=== PATIENT | female | born 1970 | race Caucasian/White ===

== ENCOUNTER 2020-05-10 11:53 | Inpatient (IN) | payer OTHER, SELFPAY ==
[~2020-05-10] VITALS: Ht 170.2 cm; Wt 117.9 kg
[2020-05-10 11:59] VITALS: BP_SYST 159
--- NOTE | 2020-05-10 12:00 | NUR ---
Patient to ER bed 7 to gown for evaluation. Side rails up. Report given to Bren RANGEL.
--- NOTE | 2020-05-10 12:10 | NUR ---
Patient presented to ER C/O flank pain. Patient BIB BLS from home. PT A&Ox4, speaking in full sentences, skin pink and warm, nausea, emesis prior to ER visit, denies diarrhea, pain 10/10. Patient states she has sudden sharp pain to right lower back since this morning. Patient reports a Hx of kidney stones "but this does not feel the same." PT states she took tylenol this morning but "threw it up" before calling 911.
--- NOTE | 2020-05-10 12:14 | NUR ---
ER Dr. LEONARDO at bedside examining patient.
[2020-05-10 12:30] LABS: BILIRUBIN,URINE NEGATIVE (NEGATIVE); COLOR,URINE YELLOW (YELLOW); GLUCOSE,URINE NEGATIVE (NEGATIVE); KETONES,URINE NEGATIVE (NEGATIVE); LEUKOCYTE ESTERASE ,URINE NEGATIVE (NEGATIVE); NITRITE, URINE NEGATIVE (NEGATIVE); PH,URINE 8.5 (5.0-8.0); PROTEIN URINE NEGATIVE (NEGATIVE); UROBILINOGEN,URINE 0.2 (0.2-1.0)
[2020-05-10] MEDS ORDERED: KETOROLAC TROMETHAMINE 30 MG VIAL IVP ONE (12:30)
[2020-05-10] MEDS ORDERED: NACL 0.9% 1,000 ML IV ONE (12:30)
[2020-05-10] MEDS ORDERED: ONDANSETRON HCL 4 MG/2 ML VIAL IVP ONE (12:30)
[2020-05-10 12:32] LABS: BLOOD, URINE TRACE (NEGATIVE); CLARITY/URINE HAZY (CLEAR)
[2020-05-10 12:40] LABS: BACTERIA,URINE MODERATE /HPF (None Seen); RBC,URINE 0-3 /HPF (0-3); WBC,URINE 0-3 /HPF (0-3); YEAST,URINE Moderate /HPF (None Seen)
[2020-05-10 12:44] LABS: BASOPHILS # (AUTO) 0.1 K/uL (0.0-0.2); BASOPHILS % (AUTO) 0.8 % (0.0-2.0); EOSINOPHILS # (AUTO) 0.1 K/uL (0.0-0.4); EOSINOPHILS % (AUTO) 1.4 % (0.0-4.0); HEMATOCRIT 34.8 % (36-48); HEMOGLOBIN 11.2 g/dL (12.0-16.0); LYMPHOCYTES % (AUTO) 10.6 % (20.5-51.5); MEAN CORPUSCULAR HEMOGLOBIN 27 pg (27-31); MEAN CORPUSCULAR HGB CONC 32 % (32-36); MEAN CORPUSCULAR VOLUME 83 fL (79.0-98.0); MONOCYTES # (AUTO) 0.5 K/uL (0.0-1.0); MONOCYTES % (AUTO) 5.3 % (1.7-9.3); NEUTROPHILS # (AUTO) 8.1 K/uL (1.8-7.7); NEUTROPHILS % (AUTO) 81.9 % (40.0-70.0); PLATELET COUNT (AUTO) 238 K/uL (130-430); RED BLOOD CELL COUNT(AUTO) 4.21 MIL/uL (4.2-6.2); RED CELL DISTRIBUTION WIDTH 19.2 % (9.0-15.0); WHITE BLOOD COUNT (AUTO) 9.9 K/uL (4.8-10.8)
--- NOTE | 2020-05-10 13:00 | NUR ---
Patient transported to radiology via wheelchair, accompanied by ROBERTO CORONA.
[2020-05-10 13:10] LABS: CALCIUM 8.5 mg/dL (8.4-11.0); CREATININE 0.77 mg/dL (0.55-1.30); POTASSIUM 4.1 mmol/L (3.5-5.1)
[2020-05-10 13:16] LABS: ALBUMIN 3.6 g/dL (3.4-4.8); TOTAL BILIRUBIN 0.2 mg/dL (0.0-1.0)
--- NOTE | 2020-05-10 13:20 | NUR ---
Returned from radiology, back to [facility].
--- NOTE | 2020-05-10 14:33 | NUR ---
ER at bedside discussing treatment/ADMISSION w/patient.
--- NOTE | 2020-05-10 14:39 | NUR ---
ADMIT ORDERS FROM DR. DELGADO.
--- NOTE | 2020-05-10 14:40 | NUR ---
RAPID COVID SWAB OBTAINED AND SENT TO LAB.
--- NOTE | 2020-05-10 15:57 | NUR ---
Patient will be admitted to care of DR. DELGADO. Admitted to MEDSURG unit. Will go to room 111B. Belongings list completed. Complete and up to date summary report printed. SBAR report to be given at bedside with opportunity for questions.
[2020-05-10 16:14] VITALS: BP_SYST 155
--- NOTE | 2020-05-10 16:17 | NUR ---
CONSULT UROLOGY KIDNEY STONES ERA LEDESMA [phone] S/W [facility]
--- NOTE | 2020-05-10 16:30 | NUR ---
Note Pt arrived to floor via gurney to room and ambulated to bed independently. Pt oriented to room and nursing routines and procedures. Questions/concerns were answered at this time. Pt oriented to call light. Call light within reach.
--- NOTE | 2020-05-10 17:13 | NUR ---
HIGH ALERT NOTE: Called Dr. sally vargas back at [phone] identified within the medical roster to verify physician authenticity.
[2020-05-10] MEDS ORDERED: NALOXONE HCL 0.4 MG/ML AMP (NARCAN) IVP PRN ×4 (17:15→18:30)
[2020-05-10] MEDS ORDERED: HYDROcodone/ACETAMIN 5-325 MG TAB (NORCO/ VICODIN) PO PRN (17:15)
[2020-05-10] MEDS: HYDROcodone/ACETAMIN 10-325 MG TAB PO PRN ×2 (17:30→23:03)
[2020-05-10] MEDS ORDERED: ONDANSETRON HCL 4 MG/2 ML VIAL IVP PRN (18:30)
[2020-05-10] MEDS ORDERED: ACETAMINOPHEN 325 MG TABLET PO PRN ×2 (18:30→18:45)
[2020-05-10] MEDS ORDERED: LORazepam 2 MG/ML VIAL IVP PRN (18:30)
[2020-05-10] MEDS ORDERED: TAMSULOSIN HCL 0.4 MG CAP PO ONE (18:30)
--- NOTE | 2020-05-10 18:40 | NUR ---
Note Pt resting in bed. Dr Villeda was at bedside and assessment done. Dr Rene on the floor to assess pt and check labs/tests at this time. Pt was checked on q1' and PRN all shift. Pt was maintained with safety precautions all shift. Pt ambulates to restroom to void. Pt has poor appetite - only eats to take her meds. No needs noted at this time. Call light within reach.
--- NOTE | 2020-05-10 19:30 | NUR ---
OPENING NOTE RECEIVED CARE OF PT AND SBAR REPORT FROM DAY SHIFT RN. PT IS AAOX4, RESTING IN BED, NO S/S OF ACUTE DISTRESS. PT DENIES PAIN AT THIS TIME. PLAN OF CARE DISCUSSED, PT VERBALIZED UNDERSTANDING. SAFETY AND FALL PRECAUTIONS ARE IN PLACE. WILL MONITOR.
[2020-05-10] MEDS: D5/0.45 NS 1,000 ML IV SCH (19:52)
[2020-05-10 20:00] VITALS: BP_SYST 153
[2020-05-11 01:45] VITALS: BP_SYST 155
[2020-05-11 06:27] LABS: BASOPHILS % (AUTO) 0.5 % (0.0-2.0); EOSINOPHILS # (AUTO) 0.4 K/uL (0.0-0.4); EOSINOPHILS % (AUTO) 4.2 % (0.0-4.0); HEMATOCRIT 34.3 % (36-48); HEMOGLOBIN 10.8 g/dL (12.0-16.0); LYMPHOCYTES # (AUTO) 1.9 K/uL (1.0-5.5); LYMPHOCYTES % (AUTO) 22.2 % (20.5-51.5); MEAN CORPUSCULAR HEMOGLOBIN 26 pg (27-31); MEAN CORPUSCULAR HGB CONC 32 % (32-36); MEAN CORPUSCULAR VOLUME 83 fL (79.0-98.0); MONOCYTES # (AUTO) 0.7 K/uL (0.0-1.0); MONOCYTES % (AUTO) 7.6 % (1.7-9.3); NEUTROPHILS # (AUTO) 5.7 K/uL (1.8-7.7); NEUTROPHILS % (AUTO) 65.5 % (40.0-70.0); PLATELET COUNT (AUTO) 215 K/uL (130-430); RED BLOOD CELL COUNT(AUTO) 4.12 MIL/uL (4.2-6.2); RED CELL DISTRIBUTION WIDTH 19.3 % (9.0-15.0); WHITE BLOOD COUNT (AUTO) 8.7 K/uL (4.8-10.8)
[2020-05-11 06:36] LABS: INR 1.1 (0.8-1.2); PROTHROMBIN TIME 11.3 SECS (9.5-12.5)
[2020-05-11 06:38] LABS: CREATININE 0.8 mg/dL (0.55-1.30); PHOSPHORUS 3.4 mg/dL (2.7-4.5); POTASSIUM 3.4 mmol/L (3.5-5.1)
[2020-05-11 07:46] VITALS: BP_SYST 143
[2020-05-11] MEDS: TAMSULOSIN HCL 0.4 MG CAP PO SCH ×2 (08:00→08:06)
--- NOTE | 2020-05-11 10:20 | NUR ---
Note Pt ate her breakfast and after 08am, pt was kept NPO for surgery this afternoon. Pt sleeping and uses BSC to void. IV in LAC intact and patent infusing IVF's well. No needs noted at this time. Call light within reach all shift. Pt's surgical packet being made ready and at nurses' station at this time.
[2020-05-11] MEDS ORDERED: KETOROLAC TROMETHAMINE 30 MG VIAL IVP PRN ×2 (10:45→18:00)
[2020-05-11 12:24] VITALS: BP_SYST 153
--- NOTE | 2020-05-11 13:05 | NUR ---
Note Dr Rene on the floor to assess pt and check labs/tests.
[2020-05-11] MEDS: D5/0.45 NS 1,000 ML IV SCH ×2 (13:10→21:22)
--- NOTE | 2020-05-11 16:24 | NUR ---
Note Pt having a CHG bath and linen change. RN from OR came to floor to check chart and speak to pt at this time. OR will come in shortly to pickup pt for surgery.
[2020-05-11 16:30] VITALS: BP_SYST 138
--- NOTE | 2020-05-11 16:30 | NUR ---
Note OR on the floor to pick pt up for surgery. Pt just informed RN that she accidently pulled IV out. AREA COORDINATOR notified - new IV to be started in OR. Pt's chart taken with pt to OR at this time.
[2020-05-11] MEDS ORDERED: HYDROmorphone 1 MG INJ. 1 MG/ML CARTRIDGE IVP PRN (18:00)
[2020-05-11] MEDS ORDERED: NALOXONE HCL 0.4 MG/ML AMP (NARCAN) IVP PRN (18:00)
[2020-05-11] MEDS ORDERED: ONDANSETRON HCL 4 MG/2 ML VIAL IVP PRN (18:00)
--- NOTE | 2020-05-11 18:20 | NUR ---
Note Pt still in OR at this time.
--- NOTE | 2020-05-11 19:00 | NUR ---
Note Pt back for OR via bed. Pt's IV in left arm intact and patent infusing IVF's well. Pt used BSC to void. Call light within reach.
[2020-05-12 00:26] VITALS: BP_SYST 150
[2020-05-12 06:23] LABS: BASOPHILS % (AUTO) 0.6 % (0.0-2.0); EOSINOPHILS # (AUTO) 0.5 K/uL (0.0-0.4); EOSINOPHILS % (AUTO) 5.9 % (0.0-4.0); HEMOGLOBIN 10.4 g/dL (12.0-16.0); LYMPHOCYTES # (AUTO) 1.9 K/uL (1.0-5.5); LYMPHOCYTES % (AUTO) 24.2 % (20.5-51.5); MEAN CORPUSCULAR HEMOGLOBIN 27 pg (27-31); MEAN CORPUSCULAR HGB CONC 33 % (32-36); MEAN CORPUSCULAR VOLUME 83 fL (79.0-98.0); MONOCYTES # (AUTO) 0.5 K/uL (0.0-1.0); MONOCYTES % (AUTO) 6.9 % (1.7-9.3); NEUTROPHILS # (AUTO) 4.9 K/uL (1.8-7.7); NEUTROPHILS % (AUTO) 62.4 % (40.0-70.0); PLATELET COUNT (AUTO) 209 K/uL (130-430); RED BLOOD CELL COUNT(AUTO) 3.88 MIL/uL (4.2-6.2); RED CELL DISTRIBUTION WIDTH 18.8 % (9.0-15.0); WHITE BLOOD COUNT (AUTO) 7.8 K/uL (4.8-10.8)
[2020-05-12] MEDS: D5/0.45 NS 1,000 ML IV SCH ×2 (06:49→08:52)
[2020-05-12 07:08] LABS: CALCIUM 7.9 mg/dL (8.4-11.0); CREATININE 0.66 mg/dL (0.55-1.30); POTASSIUM 3.2 mmol/L (3.5-5.1)
[2020-05-12 08:00] VITALS: BP_SYST 155
[2020-05-12] MEDS: TAMSULOSIN HCL 0.4 MG CAP PO SCH (08:52)
--- NOTE | 2020-05-12 09:29 | NUR ---
OPENING NOTE RECEIVED REPORT FROM NIGHT NURSE. PATIENT IS ALERT AND ORIENTED X4. ON ROOM AIR AND TOLERATING WELL WITH NO SIGNS OF SHORTNESS OF BREATH NOTED. IV IS PATENT AND INFUSING FLUIDS ORDERED WITH NO SIGNS OF INFILTRATION NOTED. BED LOCKED AND IN LOWEST POSITION. CALL LIGHT WITHIN REACH. WILL CONTINUE TO MONITOR.
[2020-05-12 11:44] VITALS: BP_SYST 145
--- NOTE | 2020-05-12 11:46 | NUR ---
Nutrition Update Alan Scale 16 noted. Pt admitted for kidney stones. Diet: regular BMI: 40.7 kg/m2 RD to follow per nutrition care standards.
[2020-05-12 16:00] VITALS: BP_SYST 150
--- NOTE | 2020-05-12 16:53 | NUR ---
Dietitian Recommendations * Recommend 2 gm Na diet * RD provided kidney stone, HTN, and wt management MNT at bedside LP, RD Please refer to Nutrition Assessment for details. Addendum: 05/12/20 at [address] Amended: Links added.
--- NOTE | 2020-05-12 18:34 | NUR ---
CLOSING NOTES PATIENT IS ALERT AND ORIENTED X4. ON ROOM AIR AND TOLERATING WELL WITH NO SIGNS OF SHORTNESS OF BREATH NOTED. IV IS PATENT AND INFUSING FLUIDS ORDERED WITH NO SIGNS OF INFILTRATION NOTED. BED LOCKED AND IN LOWEST POSITION. CALL LIGHT WITHIN REACH. WILL ENDORSE TO NIGHT NURSE.
[2020-05-12] MEDS ORDERED: IBUP-1969 PO (18:42)
[2020-05-12 18:59] VITALS: BP_SYST 142
== END 2020-05-12 20:00 | disposition home or self-care (01) | DRG 465 ==
LOC: SED 11:53 → SMU 14:39
PROVIDERS: ADMIT Preventive Medicine Preventive Medicine/Occupational Environmental Medicine; ATTEND Preventive Medicine Preventive Medicine/Occupational Environmental Medicine
PROC: 0T768DZ Dilation of Right Ureter with Intraluminal Device, Via Natural or Artificial Opening Endoscopic (ICD-10-PCS; 2020-05-11)
PROC: BT1D1ZZ Fluoroscopy of Right Kidney, Ureter and Bladder using Low Osmolar Contrast (ICD-10-PCS; principal; 2020-05-11 17:00)
DX: N13.2 Hydronephrosis with renal and ureteral calculous obstruction (principal); K57.90 Diverticulosis of intestine, part unspecified, without perforation or abscess without bleeding; E87.6 Hypokalemia; D64.9 Anemia, unspecified; E03.9 Hypothyroidism, unspecified; E83.51 Hypocalcemia; I11.9 Hypertensive heart disease without heart failure; J45.909 Unspecified asthma, uncomplicated; Z20.822 Contact with and (suspected) exposure to COVID-19; K21.9 Gastro-esophageal reflux disease without esophagitis; K80.20 Calculus of gallbladder without cholecystitis without obstruction; E66.01 Morbid (severe) obesity due to excess calories; Z87.442 Personal history of urinary calculi; Z90.49 Acquired absence of other specified parts of digestive tract; Z90.710 Acquired absence of both cervix and uterus; Z79.899 Other long term (current) drug therapy; Z88.8 Allergy status to other drugs, medicaments and biological substances; Z68.41 Body mass index [BMI] 40.0-44.9, adult
CPT/HCPCS: 36415; 76000; 76376; 80048; 80053; 81000-TC; 83735-TC; 84100-TC; 84702-TC; 85025; 85610-TC; 85730-TC; 86886; 86900; 86901; 87081; 87086; 96374; 96375; C1758; C1769; C2625; J1170; J1885; J2405; J7030; Q9967